=== PATIENT | female | born 1960 | race Caucasian/White ===

== ENCOUNTER 2017-11-25 08:40 | Emergency (ER) | payer OTHER ==
[~2017-11-25] VITALS: Ht 172.7 cm; Wt 90.7 kg
[~2017-11-25 08:40] MED LIST: KLONOPIN0.25 MG/TA; LEVSIN/SL0.125 MG PO; MUCINEX1200 MG PO; NASONEX17 GM TOP; PREMARIN0.45 MG; PROTONIX40 MG PO; SYNTHROID100 MCG; SYNTHROID112 MCG PO; TOPROL XL25 MG; WELLBUTRIN75 MG; XYZAL5 MG PO; ZITHROMAX200 MG PO; [UNRECOGNIZED DRUG - OTHER] PO
== END 2017-11-25 11:18 | disposition home or self-care (01) ==
LOC: ER 08:40
DX: S80.02XA Contusion of left knee, initial encounter (principal); S60.221A Contusion of right hand, initial encounter; W18.39XA Other fall on same level, initial encounter; Y93.89 Activity, other specified; Y92.89 Other specified places as the place of occurrence of the external cause; Y99.8 Other external cause status

== ENCOUNTER 2017-12-27 07:44 | Outpatient (CLI) | payer OTHER | END 2017-12-27 08:34 | disposition home or self-care (01) | LOC: LAB 07:44 | DX: E11.65 Type 2 diabetes mellitus with hyperglycemia (principal); E03.8 Other specified hypothyroidism; M32.9 Systemic lupus erythematosus, unspecified; E78.2 Mixed hyperlipidemia; D68.8 Other specified coagulation defects ==

== ENCOUNTER 2018-02-16 08:09 | Outpatient (CLI) | payer OTHER | END 2018-02-16 08:37 | disposition home or self-care (01) | LOC: SONOGRAMA 08:09 → MAMO-SONO 08:15 → SONOGRAMA 08:37 | DX: K83.8 Other specified diseases of biliary tract (principal); K83.1 Obstruction of bile duct ==

== ENCOUNTER 2018-02-25 17:58 | Outpatient (CLI) | payer OTHER | END 2018-02-25 18:47 | disposition home or self-care (01) | LOC: LAB 17:58 | DX: K86.2 Cyst of pancreas (principal); K86.9 Disease of pancreas, unspecified ==

== ENCOUNTER 2018-03-20 07:32 | Outpatient (CLI) | payer OTHER | END 2018-03-20 15:59 | disposition home or self-care (01) | LOC: MRI 07:32 | DX: K86.2 Cyst of pancreas (principal); K86.9 Disease of pancreas, unspecified; C25.3 Malignant neoplasm of pancreatic duct | CPT/HCPCS: 72197; 74183 ==

== ENCOUNTER 2018-08-27 08:15 | Outpatient (CLI) | payer OTHER | END 2018-08-27 08:49 | disposition home or self-care (01) | LOC: LAB 08:15 | DX: K86.2 Cyst of pancreas (principal) ==